=== PATIENT | male | born 1955 | race Hispanic/Latino ===

== ENCOUNTER 2021-12-22 09:48 | Emergency (ER) | payer OTHER, SELFPAY ==
[2021-12-22 11:51] LABS: #Eosinphils 0.2 thou/uL (0.0-0.7); #Monocytes 0.4 thou/uL (0.11-0.59); #Neutrophils 6.8 thou/uL (1.40-6.50); %Basophils 0.3 % (0.0-1.0); %Eosinophils 2.1 % (0.0-10.0); %Lymphocytes 28.5 % (21.0-51.0); %Monocytes 3.5 % (0.0-10.0); %Neutrophils 65.6 % (42.0-75.0); Hemoglobin 15.2 g/dL (14.0-18.0); Mean Corpuscular HGB CONC 33.3 g/dL (32.0-36.0); Mean Corpuscular Hemoglobin 31.3 pg (27.0-31.0); Mean Corpuscular Volume 93.9 fL (78.0-98.0); Mean Platelet Volume 8.9 fL (7.4-10.4); Platelet Count 237 thou/uL (130-400); RBC Distribution Width 11.9 % (11.5-14.5); Red Blood Cell (RBC) Count 4.85 mill/uL (4.70-6.10); White Blood Cell (WBC) Count 10.4 thou/uL (4.8-10.8)
[2021-12-22 12:10] LABS: ALT (SGPT) 9 U/L (8-55); AST (SGOT) 10 U/L (5-34); Alkaline Phosphatase 185 U/L (40-110); Anion Gap 15 mmol/L (10-20); BUN (Urea Nitrogen) 16 mg/dL (8.4-25.7); Bilirubin, Total 0.6 mg/dL (0.2-1.2); Calc. Creatinine Clearance 0 mL/min (70-130); Calcium 9.5 mg/dL (7.8-10.44); Carbon Dioxide 20 mmol/L (23-31); Chloride 107 mmol/L (98-107); Globulin 4.1 g/dL (2.4-3.5); Glucose 302 mg/dL (80-115); Potassium 3.5 mmol/L (3.5-5.1); Protein, Total 8.1 g/dL (5.8-8.1); Sodium 138 mmol/L (136-145)
== END 2021-12-22 12:45 | disposition home or self-care (01) ==
LOC: ERS 09:48
DX: I96 Gangrene, not elsewhere classified (principal); E11.9 Type 2 diabetes mellitus without complications; I25.10 Atherosclerotic heart disease of native coronary artery without angina pectoris; I25.2 Old myocardial infarction; E78.5 Hyperlipidemia, unspecified; I10 Essential (primary) hypertension; F17.210 Nicotine dependence, cigarettes, uncomplicated
CPT/HCPCS: 36415; 80053; 85025

== ENCOUNTER 2022-01-18 12:01 | Inpatient (IN) | payer OTHER, SELFPAY ==
[2022-01-18 12:53] LABS: #Basophils 0.1 thou/uL (0.0-0.2); #Eosinphils 0.2 thou/uL (0.0-0.7); #Lymphocytes 2.5 thou/uL (1.20-3.40); #Monocytes 0.5 thou/uL (0.11-0.59); #Neutrophils 7.2 thou/uL (1.40-6.50); %Basophils 0.6 % (0.0-1.0); %Eosinophils 1.6 % (0.0-10.0); %Lymphocytes 24.1 % (21.0-51.0); %Monocytes 4.4 % (0.0-10.0); %Neutrophils 69.2 % (42.0-75.0); Hemoglobin 12.4 g/dL (14.0-18.0); Mean Corpuscular HGB CONC 33.2 g/dL (32.0-36.0); Mean Corpuscular Hemoglobin 30.8 pg (27.0-31.0); Mean Corpuscular Volume 92.5 fL (78.0-98.0); Mean Platelet Volume 8.5 fL (7.4-10.4); Platelet Count 334 thou/uL (130-400); Red Blood Cell (RBC) Count 4.03 mill/uL (4.70-6.10); White Blood Cell (WBC) Count 10.4 thou/uL (4.8-10.8)
[2022-01-18] MEDS ORDERED: Cefepime 2 GM VIAL ONE (13:04)
[2022-01-18] MEDS ORDERED: Morphine 4 MG/ML VIAL ONE (13:04)
[2022-01-18] MEDS ORDERED: Vancomycin 1 GM/200 ML BAG ONE (13:07)
[2022-01-18 13:19] LABS: Anion Gap 16 mmol/L (10-20); BUN (Urea Nitrogen) 15 mg/dL (8.4-25.7); CRP (Inflammatory) 6.94 mg/dL (= or < 0.5); Calc. Creatinine Clearance 0 mL/min (70-130); Carbon Dioxide 22 mmol/L (23-31); Chloride 103 mmol/L (98-107); Potassium 3.2 mmol/L (3.5-5.1); Sodium 138 mmol/L (136-145)
[2022-01-18 13:20] LABS: ALT (SGPT) 7 U/L (8-55); AST (SGOT) 6 U/L (5-34); Albumin 3.3 g/dL (3.4-4.8); Alkaline Phosphatase 174 U/L (40-110); Bilirubin, Total 0.6 mg/dL (0.2-1.2); Calcium 9.1 mg/dL (7.8-10.44); Globulin 3.9 g/dL (2.4-3.5); Glucose 523 mg/dL (80-115); Protein, Total 7.2 g/dL (5.8-8.1)
[2022-01-18] MEDS ORDERED: Potassium Chloride 20 MEQ TAB ONE (13:39)
[2022-01-18] MEDS ORDERED: Insulin Regular 300 UNITS/3 ML VIAL ONE (13:39)
[2022-01-18] MEDS ORDERED: Calcium Carbonate 500 MG ChewTAB PO PRN (14:27)
[2022-01-18] MEDS ORDERED: Ondansetron PF 4 MG/2 ML Vial IVP PRN (14:27)
[2022-01-18] MEDS ORDERED: Acetaminophen 325 MG TAB PO PRN (14:27)
[2022-01-18] MEDS ORDERED: Dextrose 50% Abboject 50 ML SYRINGE SLOW IVP PRN (14:29)
[2022-01-18] MEDS ORDERED: Dextrose 5% in Water 1,000 ML IV PRN (14:29)
[2022-01-18] MEDS ORDERED: NS 0.9% w/ 20 MEQ KCL 1,000 ML/1,000 ML BAG IV SCH (14:45)
[2022-01-18] MEDS ORDERED: Potassium Chloride 20 MEQ TAB PO SCH (14:45)
[2022-01-18 15:47] LABS: Lactic Acid 1.7 mmol/L (0.5-2.2)
[2022-01-18 16:09] LABS: Bacteria/HPF None Seen HPF (None Seen); Bilirubin Negative (Negative); Blood, Urine Negative (Negative); Clarity Clear (Clear); Glucose, Urine (Dipstick) Greater than 1000 mg/dL (Negative); Ketone, Urine Negative (Negative); Leukocyte Negative Leu/uL (Negative); Nitrite Negative (Negative); Protein, Urine (Dipstick) 50 mg/dL (Neg-Trace); RBC/HPF 0-3 HPF (0-3); Specific Gravity, Urine 1.036 (1.002-1.036); Squamous Epithelial 0-3 HPF (0-3); WBC/HPF 0-3 HPF (0-3)
[2022-01-18] MEDS: HYDROcodone/Acetaminophen 5/325 mg Tablet PO PRN ×2 (17:01→22:36)
[2022-01-18] MEDS ORDERED: Lisinopril/Hydrochlorothiazide 20/25 mg Tablet PO SCH (17:45)
[2022-01-18] MEDS: Morphine 2 MG/ML VIAL SLOW IVP PRN (20:35)
[2022-01-18] MEDS: Famotidine 20 MG TAB PO SCH (20:35)
[2022-01-18] MEDS ORDERED: Vancomycin 1 GM in Premix Bag 1 BAG IVPB SCH (21:00)
[2022-01-18] MEDS ORDERED: Insulin Glargine 30 UNITS/0.3 ML VIAL SC SCH (21:00)
[2022-01-18] MEDS: hydrALAZINE 20 MG/ML VIAL SLOW IVP PRN (21:05)
[2022-01-18 23:21] LABS: SARS-CoV-2 PCR by NAA Not Detected (NotDetected)
[2022-01-19] MEDS: Cefepime 1 GM in Sodium Chloride 0.9% 100 ML IVPB SCH ×2 (00:34→13:37)
[2022-01-19] MEDS: Morphine 2 MG/ML VIAL SLOW IVP PRN ×5 (00:35→19:23)
[2022-01-19] MEDS: HYDROcodone/Acetaminophen 5/325 mg Tablet PO PRN ×5 (02:37→21:51)
[2022-01-19 06:13] LABS: #Basophils 0.1 thou/uL (0.0-0.2); #Eosinphils 0.3 thou/uL (0.0-0.7); #Lymphocytes 3.5 thou/uL (1.20-3.40); #Monocytes 0.5 thou/uL (0.11-0.59); #Neutrophils 5.8 thou/uL (1.40-6.50); %Basophils 0.6 % (0.0-1.0); %Eosinophils 2.8 % (0.0-10.0); %Lymphocytes 34.2 % (21.0-51.0); %Monocytes 5.3 % (0.0-10.0); Hemoglobin 10.9 g/dL (14.0-18.0); Mean Corpuscular HGB CONC 33.5 g/dL (32.0-36.0); Mean Corpuscular Hemoglobin 31.1 pg (27.0-31.0); Mean Corpuscular Volume 92.9 fL (78.0-98.0); Mean Platelet Volume 8.6 fL (7.4-10.4); Platelet Count 312 thou/uL (130-400); RBC Distribution Width 11.9 % (11.5-14.5); Red Blood Cell (RBC) Count 3.52 mill/uL (4.70-6.10); White Blood Cell (WBC) Count 10.1 thou/uL (4.8-10.8)
[2022-01-19 06:21] LABS: Hemoglobin A1c 10.1 % (4.0-6.0)
[2022-01-19 06:23] LABS: Prothrombin Time 13.5 sec (12.0-14.7)
[2022-01-19 06:36] LABS: ALT (SGPT) Less than 7 U/L (8-55); AST (SGOT) 7 U/L (5-34); Albumin 2.9 g/dL (3.4-4.8); Alkaline Phosphatase 131 U/L (40-110); Anion Gap 11 mmol/L (10-20); BUN (Urea Nitrogen) 10 mg/dL (8.4-25.7); Bilirubin, Total 0.5 mg/dL (0.2-1.2); Calc. Creatinine Clearance 101 mL/min (70-130); Calcium 8.3 mg/dL (7.8-10.44); Carbon Dioxide 23 mmol/L (23-31); Chloride 107 mmol/L (98-107); Globulin 3.4 g/dL (2.4-3.5); Glucose 217 mg/dL (80-115); Magnesium 1.8 mg/dL (1.6-2.6); Potassium 3.3 mmol/L (3.5-5.1); Protein, Total 6.3 g/dL (5.8-8.1); Sodium 138 mmol/L (136-145)
[2022-01-19] MEDS: HumaLOG 300 UNITS/3 ML VIAL SC PRN ×3 (06:53→17:08)
[2022-01-19] MEDS ORDERED: Sodium Chloride 0.65% Nasal 44 ML BOT EA NARE PRN (08:57)
[2022-01-19] MEDS ORDERED: Loratadine 10 MG TAB PO PRN (08:57)
[2022-01-19] MEDS ORDERED: Labetalol HCl 100 MG/20 ML VIAL SLOW IVP PRN (08:57)
[2022-01-19] MEDS ORDERED: Enoxaparin Sodium 40 MG/0.4 ML SYRINGE SC SCH (09:00)
[2022-01-19] MEDS ORDERED: Insulin Glargine 30 UNITS/0.3 ML VIAL SC SCH (09:00)
[2022-01-19] MEDS: Famotidine 20 MG TAB PO SCH ×2 (09:21→20:03)
[2022-01-19] MEDS: Lisinopril/Hydrochlorothiazide 20/25 mg Tablet PO SCH (09:22)
[2022-01-19] MEDS: Aspirin 81 mg Enteric Coated Tablet PO SCH (09:22)
[2022-01-19] MEDS: Amlodipine 5 MG TAB PO SCH (09:22)
[2022-01-19] MEDS: hydrALAZINE 25 MG TAB PO SCH ×4 (09:22→20:03)
[2022-01-19] MEDS ORDERED: VANCOMYCIN 1.25 GM/250 ML BAG 1.25 GM in Premix Bag 1 BAG IVPB SCH (13:00)
[2022-01-19] MEDS: Vancomycin HCl 1.25 GM in Sodium Chloride 0.9% 250 ML 250 ML IVPB SCH ×2 (13:37→17:21)
[2022-01-19] MEDS ORDERED: Magnesium 2 GM/50 ML(in water) 2 GM in Premix Bag 1 BAG IVPB SCH (14:00)
[2022-01-19] MEDS ORDERED: Electrolyte Replacement Protocol 1 EACH FS PRN (14:00)
[2022-01-19] MEDS: Senokot S 8.6-50 MG TAB PO PRN (15:59)
[2022-01-19] MEDS ORDERED: Vancomycin HCl 1.25 GM in Sodium Chloride 0.9% 250 ML 250 ML IVPB SCH (18:00)
[2022-01-19] MEDS ORDERED: Potassium Chloride 20 MEQ TAB PO SCH (19:30)
[2022-01-19] MEDS: Insulin Glargine 30 UNITS/0.3 ML VIAL SC SCH (19:56)
[2022-01-19] MEDS: Atorvastatin Calcium 40 MG TAB PO SCH (20:03)
[2022-01-20] MEDS: Morphine 2 MG/ML VIAL SLOW IVP PRN ×4 (00:06→22:28)
[2022-01-20] MEDS: Cefepime 1 GM in Sodium Chloride 0.9% 100 ML IVPB SCH (00:06)
[2022-01-20 04:41] LABS: #Basophils 0.1 thou/uL (0.0-0.2); #Eosinphils 0.3 thou/uL (0.0-0.7); #Monocytes 0.6 thou/uL (0.11-0.59); #Neutrophils 7.2 thou/uL (1.40-6.50); %Basophils 0.5 % (0.0-1.0); %Eosinophils 2.3 % (0.0-10.0); %Lymphocytes 27.2 % (21.0-51.0); %Monocytes 5.6 % (0.0-10.0); %Neutrophils 64.4 % (42.0-75.0); Hemoglobin 11.7 g/dL (14.0-18.0); Mean Corpuscular HGB CONC 33.7 g/dL (32.0-36.0); Mean Corpuscular Hemoglobin 31.5 pg (27.0-31.0); Mean Corpuscular Volume 93.4 fL (78.0-98.0); Mean Platelet Volume 8.1 fL (7.4-10.4); Platelet Count 332 thou/uL (130-400); Red Blood Cell (RBC) Count 3.73 mill/uL (4.70-6.10); White Blood Cell (WBC) Count 11.1 thou/uL (4.8-10.8)
[2022-01-20 05:00] LABS: Anion Gap 13 mmol/L (10-20); BUN (Urea Nitrogen) 7 mg/dL (8.4-25.7); Calc. Creatinine Clearance 93 mL/min (70-130); Calcium 9.3 mg/dL (7.8-10.44); Carbon Dioxide 26 mmol/L (23-31); Chloride 102 mmol/L (98-107); Glucose 112 mg/dL (80-115); Potassium 3.4 mmol/L (3.5-5.1); Sodium 138 mmol/L (136-145)
[2022-01-20] MEDS ORDERED: Potassium Chloride 20 MEQ TAB PO SCH (05:15)
[2022-01-20] MEDS: Potassium Chloride 20 MEQ in Premix Bag 1 BAG IVPB SCH ×2 (06:37→15:39)
[2022-01-20] MEDS: Famotidine 20 MG TAB PO SCH ×2 (08:09→20:41)
[2022-01-20] MEDS: Polyethylene Glycol 3350 17 GM Packet PO SCH (08:09)
[2022-01-20] MEDS: Aspirin 81 mg Enteric Coated Tablet PO SCH (08:09)
[2022-01-20] MEDS: Insulin Glargine 30 UNITS/0.3 ML VIAL SC SCH (08:09)
[2022-01-20] MEDS: hydrALAZINE 25 MG TAB PO SCH ×4 (08:58→20:41)
[2022-01-20] MEDS: Amlodipine 5 MG TAB PO SCH (08:59)
[2022-01-20] MEDS: Lisinopril/Hydrochlorothiazide 20/25 mg Tablet PO SCH (08:59)
[2022-01-20] MEDS: HYDROcodone/Acetaminophen 5/325 mg Tablet PO PRN ×2 (12:09→20:39)
[2022-01-20] MEDS ORDERED: Fentanyl 100 MCG/2 ML VIAL ONE (13:52)
[2022-01-20] MEDS ORDERED: Midazolam HCl 2 mg/2 ml Vial ONE (13:52)
[2022-01-20] MEDS: Cefepime 2 GM in Sodium Chloride 0.9% 100 ML IVPB SCH (14:09)
[2022-01-20] MEDS ORDERED: fentaNYL Citrate/PF 100 MCG/2 ML SYRINGE ONE (14:31)
[2022-01-20] MEDS ORDERED: PHENYLEPHRINE-NS 100 MCG/ML 10 ML SYRINGE ONE (15:00)
[2022-01-20] MEDS ORDERED: Ropivacaine 0.5% HCl/PF (150 MG/30 ML VIAL) ONE (15:00)
[2022-01-20] MEDS ORDERED: PROPOFOL 200 MG/20 ML VIAL ONE (15:00)
[2022-01-20] MEDS ORDERED: Lidocaine 1% PF 5 ML VIAL ONE (15:00)
[2022-01-20] MEDS ORDERED: ePHEDrine 50 MG/ML VIAL ONE (15:00)
[2022-01-20] MEDS: VANCOMYCIN 1.25 GM/250 ML BAG 1.25 GM in Premix Bag 1 BAG IVPB SCH (18:12)
[2022-01-20] MEDS: Atorvastatin Calcium 40 MG TAB PO SCH (20:41)
[2022-01-21] MEDS: HYDROcodone/Acetaminophen 5/325 mg Tablet PO PRN ×5 (01:30→19:10)
[2022-01-21] MEDS: Cefepime 2 GM in Sodium Chloride 0.9% 100 ML IVPB SCH (01:33)
[2022-01-21] MEDS: Morphine 2 MG/ML VIAL SLOW IVP PRN ×6 (03:42→22:31)
[2022-01-21 06:01] LABS: Anion Gap 13 mmol/L (10-20); BUN (Urea Nitrogen) 12 mg/dL (8.4-25.7); Calc. Creatinine Clearance 86 mL/min (70-130); Calcium 8.8 mg/dL (7.8-10.44); Carbon Dioxide 25 mmol/L (23-31); Chloride 101 mmol/L (98-107); Glucose 255 mg/dL (80-115); Potassium 3.5 mmol/L (3.5-5.1); Sodium 135 mmol/L (136-145)
[2022-01-21] MEDS: VANCOMYCIN 1.25 GM/250 ML BAG 1.25 GM in Premix Bag 1 BAG IVPB SCH (06:05)
[2022-01-21] MEDS: HumaLOG 300 UNITS/3 ML VIAL SC PRN ×2 (06:06→10:53)
[2022-01-21] MEDS ORDERED: Potassium Chloride 20 MEQ TAB PO SCH (06:15)
[2022-01-21] MEDS: Polyethylene Glycol 3350 17 GM Packet PO SCH (08:46)
[2022-01-21] MEDS: hydrALAZINE 25 MG TAB PO SCH ×4 (08:46→20:11)
[2022-01-21] MEDS: Enoxaparin Sodium 40 MG/0.4 ML SYRINGE SC SCH (08:46)
[2022-01-21] MEDS: Aspirin 81 mg Enteric Coated Tablet PO SCH (08:46)
[2022-01-21] MEDS: Lisinopril/Hydrochlorothiazide 20/25 mg Tablet PO SCH (08:46)
[2022-01-21] MEDS: Famotidine 20 MG TAB PO SCH ×2 (08:47→20:11)
[2022-01-21] MEDS: Amlodipine 5 MG TAB PO SCH (08:47)
[2022-01-21] MEDS: Insulin Glargine 30 UNITS/0.3 ML VIAL SC SCH ×2 (08:47→20:13)
[2022-01-21] MEDS ORDERED: Insulin Glargine 30 UNITS/0.3 ML VIAL SC SCH (09:00)
[2022-01-21] MEDS: hydrALAZINE 20 MG/ML VIAL SLOW IVP PRN (18:31)
[2022-01-21] MEDS: Atorvastatin Calcium 40 MG TAB PO SCH (20:12)
[2022-01-22] MEDS: HYDROcodone/Acetaminophen 5/325 mg Tablet PO PRN ×6 (01:16→21:10)
[2022-01-22] MEDS: Senokot S 8.6-50 MG TAB PO PRN (01:16)
[2022-01-22] MEDS: Morphine 2 MG/ML VIAL SLOW IVP PRN (04:16)
[2022-01-22] MEDS: HumaLOG 300 UNITS/3 ML VIAL SC PRN ×2 (05:12→11:38)
[2022-01-22] MEDS: Aspirin 81 mg Enteric Coated Tablet PO SCH (08:36)
[2022-01-22] MEDS: Amlodipine 5 MG TAB PO SCH (08:36)
[2022-01-22] MEDS: Lisinopril/Hydrochlorothiazide 20/25 mg Tablet PO SCH (08:36)
[2022-01-22] MEDS: hydrALAZINE 25 MG TAB PO SCH ×4 (08:36→21:09)
[2022-01-22] MEDS: Famotidine 20 MG TAB PO SCH ×2 (08:36→21:10)
[2022-01-22] MEDS: Enoxaparin Sodium 40 MG/0.4 ML SYRINGE SC SCH (08:37)
[2022-01-22] MEDS: Polyethylene Glycol 3350 17 GM Packet PO SCH (08:37)
[2022-01-22] MEDS: Insulin Glargine 30 UNITS/0.3 ML VIAL SC SCH (08:45)
[2022-01-22] MEDS ORDERED: Morphine 4 MG/ML VIAL SLOW IVP PRN (09:16)
[2022-01-22] MEDS: Gabapentin 100 MG CAP PO SCH ×2 (17:03→21:10)
[2022-01-22] MEDS ORDERED: Insulin Glargine 30 UNITS/0.3 ML VIAL SC SCH (21:00)
[2022-01-22] MEDS: Atorvastatin Calcium 40 MG TAB PO SCH (21:09)
[2022-01-22] MEDS ORDERED: Gabapentin 100 MG CAP PO SCH (23:59)
[2022-01-23] MEDS: HYDROcodone/Acetaminophen 5/325 mg Tablet PO PRN ×4 (02:47→17:21)
[2022-01-23] MEDS: HumaLOG 300 UNITS/3 ML VIAL SC PRN ×2 (06:01→11:58)
[2022-01-23] MEDS ORDERED: Morphine 4 MG/ML VIAL SLOW IVP PRN (07:45)
[2022-01-23] MEDS ORDERED: Gabapentin 100 MG CAP PO SCH (07:46)
[2022-01-23] MEDS: Aspirin 81 mg Enteric Coated Tablet PO SCH (09:27)
[2022-01-23] MEDS: Polyethylene Glycol 3350 17 GM Packet PO SCH (09:27)
[2022-01-23] MEDS: hydrALAZINE 25 MG TAB PO SCH ×4 (09:27→21:32)
[2022-01-23] MEDS: Amlodipine 5 MG TAB PO SCH (09:27)
[2022-01-23] MEDS: Enoxaparin Sodium 40 MG/0.4 ML SYRINGE SC SCH (09:27)
[2022-01-23] MEDS: Famotidine 20 MG TAB PO SCH ×2 (09:28→21:13)
[2022-01-23] MEDS: Lisinopril/Hydrochlorothiazide 20/25 mg Tablet PO SCH (09:28)
[2022-01-23] MEDS: Gabapentin 300 MG CAP PO SCH ×4 (09:28→21:32)
[2022-01-23] MEDS: Insulin Glargine 30 UNITS/0.3 ML VIAL SC SCH ×2 (09:29→21:14)
[2022-01-23] MEDS: Atorvastatin Calcium 40 MG TAB PO SCH (21:14)
[2022-01-23] MEDS ORDERED: Naloxone HCl 0.4 mg/ml Vial ONE (21:39)
[2022-01-23] MEDS ORDERED: Naloxone HCl 0.4 mg/ml Vial IV SCH (21:45)
[2022-01-23 22:01] LABS: #Basophils 0.1 thou/uL (0.0-0.2); #Eosinphils 0.2 thou/uL (0.0-0.7); #Monocytes 0.9 thou/uL (0.11-0.59); #Neutrophils 10.1 thou/uL (1.40-6.50); %Basophils 0.5 % (0.0-1.0); %Eosinophils 1.2 % (0.0-10.0); %Lymphocytes 20.9 % (21.0-51.0); %Monocytes 6.1 % (0.0-10.0); %Neutrophils 71.4 % (42.0-75.0); Hemoglobin 12.9 g/dL (14.0-18.0); Mean Corpuscular HGB CONC 31.6 g/dL (32.0-36.0); Mean Corpuscular Hemoglobin 29.9 pg (27.0-31.0); Mean Corpuscular Volume 94.5 fL (78.0-98.0); Platelet Count 379 thou/uL (130-400); RBC Distribution Width 12.1 % (11.5-14.5); Red Blood Cell (RBC) Count 4.31 mill/uL (4.70-6.10); White Blood Cell (WBC) Count 14.2 thou/uL (4.8-10.8)
[2022-01-24] MEDS: HYDROcodone/Acetaminophen 5/325 mg Tablet PO PRN ×4 (02:29→21:56)
[2022-01-24] MEDS: Enoxaparin Sodium 40 MG/0.4 ML SYRINGE SC SCH (09:52)
[2022-01-24] MEDS: Lisinopril/Hydrochlorothiazide 20/25 mg Tablet PO SCH (09:52)
[2022-01-24] MEDS: Aspirin 81 mg Enteric Coated Tablet PO SCH (09:52)
[2022-01-24] MEDS: Amlodipine 5 MG TAB PO SCH (09:52)
[2022-01-24] MEDS: hydrALAZINE 25 MG TAB PO SCH ×4 (09:52→20:40)
[2022-01-24] MEDS: Famotidine 20 MG TAB PO SCH ×2 (09:52→20:39)
[2022-01-24] MEDS: Gabapentin 100 MG CAP PO SCH ×3 (09:52→20:39)
[2022-01-24] MEDS: Insulin Glargine 30 UNITS/0.3 ML VIAL SC SCH ×2 (09:53→20:42)
[2022-01-24] MEDS: Polyethylene Glycol 3350 17 GM Packet PO SCH (10:15)
[2022-01-24 10:32] LABS: Platelet Count 345 thou/uL (130-400)
[2022-01-24 10:43] LABS: Anion Gap 15 mmol/L (10-20); BUN (Urea Nitrogen) 20 mg/dL (8.4-25.7); Calc. Creatinine Clearance 93 mL/min (70-130); Calcium 9.2 mg/dL (7.8-10.44); Carbon Dioxide 24 mmol/L (23-31); Chloride 97 mmol/L (98-107); Glucose 123 mg/dL (80-115); Potassium 4.1 mmol/L (3.5-5.1); Sodium 132 mmol/L (136-145)
[2022-01-24] MEDS: Atorvastatin Calcium 40 MG TAB PO SCH (20:39)
[2022-01-25] MEDS: HYDROcodone/Acetaminophen 5/325 mg Tablet PO PRN ×3 (04:38→14:00)
[2022-01-25] MEDS: HumaLOG 300 UNITS/3 ML VIAL SC PRN ×3 (06:22→17:13)
[2022-01-25] MEDS: Enoxaparin Sodium 40 MG/0.4 ML SYRINGE SC SCH (09:04)
[2022-01-25] MEDS: Famotidine 20 MG TAB PO SCH ×2 (09:05→20:43)
[2022-01-25] MEDS: Aspirin 81 mg Enteric Coated Tablet PO SCH (09:05)
[2022-01-25] MEDS: Insulin Glargine 30 UNITS/0.3 ML VIAL SC SCH ×2 (09:05→21:29)
[2022-01-25] MEDS: Polyethylene Glycol 3350 17 GM Packet PO SCH (09:05)
[2022-01-25] MEDS: Gabapentin 100 MG CAP PO SCH ×3 (09:08→20:44)
[2022-01-25] MEDS: hydrALAZINE 25 MG TAB PO SCH ×4 (09:13→20:43)
[2022-01-25] MEDS: Amlodipine 5 MG TAB PO SCH (09:13)
[2022-01-25] MEDS: Lisinopril/Hydrochlorothiazide 20/25 mg Tablet PO SCH (09:13)
[2022-01-25 16:23] LABS: SARS-CoV-2 PCR by NAA Not Detected (NotDetected)
[2022-01-25] MEDS: Atorvastatin Calcium 40 MG TAB PO SCH (20:44)
[2022-01-26] MEDS: HYDROcodone/Acetaminophen 5/325 mg Tablet PO PRN ×2 (02:42→16:02)
[2022-01-26] MEDS: HumaLOG 300 UNITS/3 ML VIAL SC PRN ×3 (05:43→20:17)
[2022-01-26] MEDS: Aspirin 81 mg Enteric Coated Tablet PO SCH (09:57)
[2022-01-26] MEDS: Enoxaparin Sodium 40 MG/0.4 ML SYRINGE SC SCH (09:57)
[2022-01-26] MEDS: Amlodipine 5 MG TAB PO SCH (09:57)
[2022-01-26] MEDS: hydrALAZINE 25 MG TAB PO SCH ×4 (09:57→20:18)
[2022-01-26] MEDS: Lisinopril/Hydrochlorothiazide 20/25 mg Tablet PO SCH (09:57)
[2022-01-26] MEDS: Famotidine 20 MG TAB PO SCH ×2 (09:57→20:16)
[2022-01-26] MEDS: Insulin Glargine 30 UNITS/0.3 ML VIAL SC SCH ×2 (09:58→20:17)
[2022-01-26] MEDS: Polyethylene Glycol 3350 17 GM Packet PO SCH (09:59)
[2022-01-26] MEDS: Gabapentin 100 MG CAP PO SCH ×2 (10:18→20:15)
[2022-01-26] MEDS: Ketorolac Tromethamine 30 MG/ML VIAL IVP PRN (12:55)
[2022-01-26] MEDS: Senokot S 8.6-50 MG TAB PO PRN (20:14)
[2022-01-26] MEDS: Atorvastatin Calcium 40 MG TAB PO SCH (20:15)
[2022-01-27] MEDS: Ketorolac Tromethamine 30 MG/ML VIAL IVP PRN ×3 (03:28→18:22)
[2022-01-27 09:59] LABS: Hemoglobin 12.1 g/dL (14.0-18.0); Platelet Count 451 thou/uL (130-400)
[2022-01-27] MEDS: Enoxaparin Sodium 40 MG/0.4 ML SYRINGE SC SCH (10:03)
[2022-01-27] MEDS: Aspirin 81 mg Enteric Coated Tablet PO SCH (10:03)
[2022-01-27] MEDS: Polyethylene Glycol 3350 17 GM Packet PO SCH (10:03)
[2022-01-27] MEDS: Amlodipine 5 MG TAB PO SCH (10:04)
[2022-01-27] MEDS: Senokot S 8.6-50 MG TAB PO PRN ×2 (10:04→21:47)
[2022-01-27] MEDS: Famotidine 20 MG TAB PO SCH ×2 (10:04→21:48)
[2022-01-27] MEDS: hydrALAZINE 25 MG TAB PO SCH ×2 (10:05→12:39)
[2022-01-27] MEDS: Insulin Glargine 30 UNITS/0.3 ML VIAL SC SCH ×2 (10:05→21:49)
[2022-01-27] MEDS: Gabapentin 100 MG CAP PO SCH (10:05)
[2022-01-27] MEDS: Lisinopril/Hydrochlorothiazide 20/25 mg Tablet PO SCH (10:06)
[2022-01-27 10:21] LABS: Anion Gap 14 mmol/L (10-20); BUN (Urea Nitrogen) 29 mg/dL (8.4-25.7); Calc. Creatinine Clearance 78 mL/min (70-130); Calcium 9.8 mg/dL (7.8-10.44); Carbon Dioxide 24 mmol/L (23-31); Chloride 101 mmol/L (98-107); Glucose 186 mg/dL (80-115); Potassium 4.3 mmol/L (3.5-5.1); Sodium 135 mmol/L (136-145)
[2022-01-27] MEDS: HumaLOG 300 UNITS/3 ML VIAL SC PRN ×3 (12:40→21:50)
[2022-01-27] MEDS: Atorvastatin Calcium 40 MG TAB PO SCH (21:47)
[2022-01-27] MEDS: HYDROcodone/Acetaminophen 5/325 mg Tablet PO PRN (21:51)
[2022-01-28] MEDS: Ketorolac Tromethamine 30 MG/ML VIAL IVP PRN (01:59)
[2022-01-28] MEDS: HYDROcodone/Acetaminophen 5/325 mg Tablet PO PRN ×2 (06:26→12:15)
[2022-01-28] MEDS: HumaLOG 300 UNITS/3 ML VIAL SC PRN ×2 (06:27→12:15)
[2022-01-28] MEDS: Aspirin 81 mg Enteric Coated Tablet PO SCH (09:00)
[2022-01-28] MEDS: Gabapentin 100 MG CAP PO SCH (09:00)
[2022-01-28] MEDS: Enoxaparin Sodium 40 MG/0.4 ML SYRINGE SC SCH (09:00)
[2022-01-28] MEDS: Polyethylene Glycol 3350 17 GM Packet PO SCH (09:00)
[2022-01-28] MEDS: Famotidine 20 MG TAB PO SCH ×2 (09:01→22:05)
[2022-01-28] MEDS: Insulin Glargine 30 UNITS/0.3 ML VIAL SC SCH ×2 (09:20→22:05)
[2022-01-28 09:25] VITALS: BMI 24.7
[2022-01-28] MEDS: Atorvastatin Calcium 40 MG TAB PO SCH (22:05)
[2022-01-28] MEDS: Senokot S 8.6-50 MG TAB PO PRN (22:07)
[2022-01-29] MEDS: HYDROcodone/Acetaminophen 5/325 mg Tablet PO PRN ×2 (03:06→19:38)
[2022-01-29] MEDS: Amlodipine 5 MG TAB PO SCH (11:50)
[2022-01-29] MEDS: Famotidine 20 MG TAB PO SCH ×2 (11:50→20:57)
[2022-01-29] MEDS: Gabapentin 100 MG CAP PO SCH (11:50)
[2022-01-29] MEDS: Aspirin 81 mg Enteric Coated Tablet PO SCH (11:50)
[2022-01-29] MEDS: Ketorolac Tromethamine 30 MG/ML VIAL IVP PRN ×2 (11:50→19:37)
[2022-01-29] MEDS: Enoxaparin Sodium 40 MG/0.4 ML SYRINGE SC SCH (11:50)
[2022-01-29] MEDS: Polyethylene Glycol 3350 17 GM Packet PO SCH (11:58)
[2022-01-29] MEDS: Insulin Glargine 30 UNITS/0.3 ML VIAL SC SCH ×2 (11:58→21:02)
[2022-01-29] MEDS: Atorvastatin Calcium 40 MG TAB PO SCH (20:57)
[2022-01-30] MEDS: HYDROcodone/Acetaminophen 5/325 mg Tablet PO PRN ×4 (00:38→23:38)
[2022-01-30] MEDS: Ketorolac Tromethamine 30 MG/ML VIAL IVP PRN ×3 (03:31→19:25)
[2022-01-30] MEDS: Enoxaparin Sodium 40 MG/0.4 ML SYRINGE SC SCH (09:38)
[2022-01-30] MEDS: Aspirin 81 mg Enteric Coated Tablet PO SCH (09:38)
[2022-01-30] MEDS: Gabapentin 100 MG CAP PO SCH (09:38)
[2022-01-30] MEDS: Famotidine 20 MG TAB PO SCH ×2 (09:38→19:26)
[2022-01-30] MEDS: Amlodipine 5 MG TAB PO SCH (09:38)
[2022-01-30] MEDS: Polyethylene Glycol 3350 17 GM Packet PO SCH (09:39)
[2022-01-30] MEDS: Lisinopril/Hydrochlorothiazide 20/25 mg Tablet PO SCH (09:41)
[2022-01-30] MEDS: Insulin Glargine 30 UNITS/0.3 ML VIAL SC SCH ×2 (09:42→20:16)
[2022-01-30 10:00] LABS: Platelet Count 490 thou/uL (130-400)
[2022-01-30 10:20] LABS: Chloride 104 mmol/L (98-107); Potassium 4.3 mmol/L (3.5-5.1); Sodium 135 mmol/L (136-145)
[2022-01-30 10:21] LABS: Calcium 8.9 mg/dL (7.8-10.44); Glucose 143 mg/dL (80-115)
[2022-01-30 10:23] LABS: Anion Gap 13 mmol/L (10-20); Carbon Dioxide 22 mmol/L (23-31)
[2022-01-30 10:25] LABS: Calc. Creatinine Clearance 87 mL/min (70-130)
[2022-01-30 10:26] LABS: BUN (Urea Nitrogen) 27 mg/dL (8.4-25.7)
[2022-01-30] MEDS: Atorvastatin Calcium 40 MG TAB PO SCH (19:26)
[2022-01-31] MEDS: Polyethylene Glycol 3350 17 GM Packet PO SCH (09:43)
[2022-01-31] MEDS: Lisinopril/Hydrochlorothiazide 20/25 mg Tablet PO SCH (09:43)
[2022-01-31] MEDS: Aspirin 81 mg Enteric Coated Tablet PO SCH (09:44)
[2022-01-31] MEDS: Amlodipine 5 MG TAB PO SCH (09:44)
[2022-01-31] MEDS: Enoxaparin Sodium 40 MG/0.4 ML SYRINGE SC SCH (09:44)
[2022-01-31] MEDS: Insulin Glargine 30 UNITS/0.3 ML VIAL SC SCH (09:44)
[2022-01-31] MEDS: Gabapentin 100 MG CAP PO SCH (09:44)
[2022-01-31] MEDS: Famotidine 20 MG TAB PO SCH (09:44)
[2022-01-31 16:02] VITALS: BP 115/65; TEMP 97.8
== END 2022-01-31 18:45 | disposition home or self-care (01) | DRG 239 ==
LOC: ERS 12:01 → MSONC 14:01 → IMCU/EMU 01-23 21:53 → 2NO 01-24 21:39
PROVIDERS: ADMIT Family Medicine; ATTEND Family Medicine
PROC: 0Y6J0Z1 Detachment at Left Lower Leg, High, Open Approach (ICD-10-PCS; principal; 2022-01-20)
DX: E11.52 Type 2 diabetes mellitus with diabetic peripheral angiopathy with gangrene (principal); G92.8 Other toxic encephalopathy; I96 Gangrene, not elsewhere classified; E11.621 Type 2 diabetes mellitus with foot ulcer; E11.65 Type 2 diabetes mellitus with hyperglycemia; E78.5 Hyperlipidemia, unspecified; I10 Essential (primary) hypertension; Z20.822 Contact with and (suspected) exposure to COVID-19; F17.210 Nicotine dependence, cigarettes, uncomplicated; L97.529 Non-pressure chronic ulcer of other part of left foot with unspecified severity; E87.6 Hypokalemia; I25.10 Atherosclerotic heart disease of native coronary artery without angina pectoris; Z79.84 Long term (current) use of oral hypoglycemic drugs; Z79.82 Long term (current) use of aspirin; Z79.899 Other long term (current) drug therapy; Z95.5 Presence of coronary angioplasty implant and graft; Z98.890 Other specified postprocedural states; Z82.49 Family history of ischemic heart disease and other diseases of the circulatory system
CPT/HCPCS: 36415; 36416; 70450; 71045; 80048; 80053; 81003; 81015; 82550; 83036; 83605; 83690; 83735; 83880; 84484; 85014; 85018; 85025; 85049; 85610; 85652; 86140; 87040; 88307; 88311; 93005; 96365; 96367; 96375; J0360; J0692; J1650; J1815; J1885; J2250; J2270; J2310; J2704; J2795; J3010; J3370; J3475; J3480; J3490; J7050; U0003; U0005

== ENCOUNTER 2022-12-25 20:39 | Inpatient (IN) | payer MEDICARE, OTHER ==
[2022-12-26 00:13] LABS: #Eosinphils 0.3 thou/uL (0.0-0.7); #Lymphocytes 2.8 thou/uL (1.20-3.40); #Monocytes 0.5 thou/uL (0.11-0.59); #Neutrophils 4.6 thou/uL (1.40-6.50); %Basophils 0.6 % (0.0-1.0); %Eosinophils 3.3 % (0.0-10.0); %Lymphocytes 34.7 % (21.0-51.0); %Monocytes 5.5 % (0.0-10.0); %Neutrophils 55.9 % (42.0-75.0); Mean Corpuscular HGB CONC 34.1 g/dL (32.0-36.0); Mean Corpuscular Volume 93.9 fl (78.0-98.0); Mean Platelet Volume 11.9 fL (7.4-10.4); Platelet Count 138 10x3/uL (130-400); RBC Distribution Width 13.8 % (11.5-14.5); Red Blood Cell (RBC) Count 4.07 mill/uL (4.70-6.10); White Blood Cell (WBC) Count 8.2 10x3/uL (4.8-10.8)
[2022-12-26 00:35] LABS: ALT (SGPT) 8 U/L (8-55); AST (SGOT) 20 U/L (5-34); Albumin 3.6 g/dL (3.4-4.8); Alkaline Phosphatase 151 U/L (40-110); Anion Gap 17 mmol/L (10-20); BUN (Urea Nitrogen) 12 mg/dL (8.4-25.7); Calc. Creatinine Clearance 0 mL/min (70-130); Calcium 9.5 mg/dL (7.8-10.44); Carbon Dioxide 20 mmol/L (23-31); Chloride 110 mmol/L (98-107); Estimated GFR 77; Globulin 3.7 g/dL (2.4-3.5); Glucose 78 mg/dL (80-115); Potassium 3.5 mmol/L (3.5-5.1); Protein, Total 7.3 g/dL (5.8-8.1); Sodium 143 mmol/L (136-145)
[2022-12-26] MEDS ORDERED: Dextrose 50% Abboject 50 ML SYRINGE SLOW IVP PRN (00:44)
[2022-12-26] MEDS ORDERED: Ondansetron PF 4 MG/2 ML Vial IVP PRN (00:44)
[2022-12-26] MEDS ORDERED: Ondansetron ODT 4 MG TAB PO PRN (00:44)
[2022-12-26] MEDS ORDERED: Dextrose 5% in Water 1,000 ML IV PRN (00:44)
[2022-12-26] MEDS ORDERED: HumaLOG 300 UNITS/3 ML VIAL SC PRN ×2 (00:44)
[2022-12-26] MEDS ORDERED: Acetaminophen 650 MG Suppository PR PRN (00:44)
[2022-12-26] MEDS ORDERED: Labetalol HCl 100 MG/20 ML VIAL SLOW IVP PRN (00:49)
[2022-12-26] MEDS ORDERED: Electrolyte Replacement Protocol 1 EACH FS SCH (01:15)
[2022-12-26 01:38] LABS: INR-International Normal Ratio 1.3; PTT 40.2 sec (22.9-36.1); Prothrombin Time 17.1 sec (12.0-14.7)
[2022-12-26] MEDS ORDERED: hydrALAZINE 20 MG/ML VIAL SLOW IVP PRN ×2 (01:45→03:13)
[2022-12-26] MEDS ORDERED: Dextrose 5 %-0.45 % NaCl 1,000 ML IV SCH (02:00)
[2022-12-26 05:48] LABS: #Eosinphils 0.3 thou/uL (0.0-0.7); #Lymphocytes 2.9 thou/uL (1.20-3.40); #Monocytes 0.4 thou/uL (0.11-0.59); #Neutrophils 4.6 thou/uL (1.40-6.50); %Basophils 0.4 % (0.0-1.0); %Eosinophils 3.2 % (0.0-10.0); %Lymphocytes 35.4 % (21.0-51.0); %Monocytes 4.9 % (0.0-10.0); %Neutrophils 56.1 % (42.0-75.0); Hemoglobin 12.2 g/dL (14.0-18.0); Mean Corpuscular HGB CONC 33.2 g/dL (32.0-36.0); Mean Corpuscular Hemoglobin 30.9 pg (27.0-31.0); Mean Platelet Volume 11.8 fL (7.4-10.4); Platelet Count 134 10x3/uL (130-400); RBC Distribution Width 13.7 % (11.5-14.5); Red Blood Cell (RBC) Count 3.97 mill/uL (4.70-6.10); White Blood Cell (WBC) Count 8.1 10x3/uL (4.8-10.8)
[2022-12-26 06:00] LABS: ALT (SGPT) 8 U/L (8-55); AST (SGOT) 18 U/L (5-34); Albumin 3.6 g/dL (3.4-4.8); Alkaline Phosphatase 150 U/L (40-110); Anion Gap 15 mmol/L (10-20); BUN (Urea Nitrogen) 13 mg/dL (8.4-25.7); Bilirubin, Total 0.9 mg/dL (0.2-1.2); Calc. Creatinine Clearance 59 mL/min (70-130); Calcium 9.6 mg/dL (7.8-10.44); Carbon Dioxide 22 mmol/L (23-31); Chloride 110 mmol/L (98-107); Estimated GFR 81; Globulin 3.6 g/dL (2.4-3.5); Glucose 76 mg/dL (80-115); Magnesium 1.9 mg/dL (1.6-2.6); Potassium 3.6 mmol/L (3.5-5.1); Protein, Total 7.2 g/dL (5.8-8.1); Sodium 143 mmol/L (136-145)
[2022-12-26] MEDS ORDERED: Magnesium 2 GM/50 ML BAG (IN WATER) ONE (07:55)
[2022-12-26] MEDS ORDERED: Magnesium 2 GM/50 ML(in water) 2 GM in Premix Bag 1 BAG IVPB SCH (08:00)
[2022-12-26] MEDS ORDERED: Pantoprazole 40 MG VIAL IVP SCH (13:06)
[2022-12-26 13:44] LABS: #Basophils 0.1 thou/uL (0.0-0.2); #Eosinphils 0.3 thou/uL (0.0-0.7); #Lymphocytes 3.9 thou/uL (1.20-3.40); #Monocytes 0.4 thou/uL (0.11-0.59); #Neutrophils 3.6 thou/uL (1.40-6.50); %Basophils 0.7 % (0.0-1.0); %Lymphocytes 46.7 % (21.0-51.0); %Monocytes 5.2 % (0.0-10.0); %Neutrophils 43.4 % (42.0-75.0); Hemoglobin 12.7 g/dL (14.0-18.0); Mean Corpuscular HGB CONC 32.9 g/dL (32.0-36.0); Mean Corpuscular Hemoglobin 31.1 pg (27.0-31.0); Mean Corpuscular Volume 94.4 fl (78.0-98.0); Mean Platelet Volume 11.1 fL (7.4-10.4); Platelet Count 139 10x3/uL (130-400); RBC Distribution Width 13.6 % (11.5-14.5); Red Blood Cell (RBC) Count 4.08 mill/uL (4.70-6.10); White Blood Cell (WBC) Count 8.4 10x3/uL (4.8-10.8)
[2022-12-26] MEDS: Dextrose 5 %-0.45 % NaCl 1,000 ML IV SCH ×2 (13:50→23:45)
[2022-12-26] MEDS ORDERED: Pantoprazole 40 MG VIAL ONE (13:58)
[2022-12-26] MEDS: Pantoprazole 40 MG VIAL IVP SCH (20:35)
[2022-12-27 05:28] LABS: #Basophils 0.1 thou/uL (0.0-0.2); #Eosinphils 0.3 thou/uL (0.0-0.7); #Lymphocytes 3.1 thou/uL (1.20-3.40); #Monocytes 0.5 thou/uL (0.11-0.59); #Neutrophils 3.7 thou/uL (1.40-6.50); %Basophils 0.7 % (0.0-1.0); %Eosinophils 3.7 % (0.0-10.0); %Monocytes 5.9 % (0.0-10.0); %Neutrophils 48.7 % (42.0-75.0); Hemoglobin 12.9 g/dL (14.0-18.0); Mean Corpuscular HGB CONC 33.2 g/dL (32.0-36.0); Mean Corpuscular Volume 93.6 fl (78.0-98.0); Mean Platelet Volume 11.5 fL (7.4-10.4); Platelet Count 131 10x3/uL (130-400); RBC Distribution Width 13.7 % (11.5-14.5); Red Blood Cell (RBC) Count 4.16 mill/uL (4.70-6.10); White Blood Cell (WBC) Count 7.5 10x3/uL (4.8-10.8)
[2022-12-27 05:49] LABS: Troponin I Less than 0.010 ng/mL (< 0.028)
[2022-12-27 05:52] LABS: ALT (SGPT) 10 U/L (8-55); AST (SGOT) 19 U/L (5-34); Albumin 3.6 g/dL (3.4-4.8); Alkaline Phosphatase 149 U/L (40-110); Anion Gap 14 mmol/L (10-20); BUN (Urea Nitrogen) 11 mg/dL (8.4-25.7); Calc. Creatinine Clearance 61 mL/min (70-130); Calcium 9.4 mg/dL (7.8-10.44); Carbon Dioxide 20 mmol/L (23-31); Chloride 110 mmol/L (98-107); Estimated GFR 88; Globulin 3.7 g/dL (2.4-3.5); Glucose 125 mg/dL (80-115); Magnesium 2.1 mg/dL (1.6-2.6); Potassium 3.5 mmol/L (3.5-5.1); Protein, Total 7.3 g/dL (5.8-8.1); Sodium 140 mmol/L (136-145)
[2022-12-27] MEDS ORDERED: Potassium Chloride 20 MEQ TAB PO SCH (08:00)
[2022-12-27] MEDS ORDERED: Spironolactone 25 MG TAB PO SCH (08:45)
[2022-12-27] MEDS: Losartan 25 MG TAB PO SCH (09:24)
[2022-12-27] MEDS: Pantoprazole 40 MG VIAL IVP SCH ×2 (09:24→20:59)
[2022-12-27] MEDS: Dextrose 5 %-0.45 % NaCl 1,000 ML IV SCH ×2 (09:26→20:00)
[2022-12-27] MEDS: levETIRAcetam 500 MG TAB PO SCH ×2 (09:26→20:59)
[2022-12-27] MEDS: Tamsulosin HCl 0.4 MG CAP PO SCH (09:26)
[2022-12-27 14:37] LABS: Potassium 3.8 mmol/L (3.5-5.1)
[2022-12-27] MEDS: Atorvastatin Calcium 40 MG TAB PO SCH (20:59)
[2022-12-27] MEDS: DULoxetine 20 MG CAP PO SCH (20:59)
[2022-12-28] MEDS: Dextrose 5 %-0.45 % NaCl 1,000 ML IV SCH ×2 (05:55→15:50)
[2022-12-28 06:25] LABS: ALT (SGPT) 10 U/L (8-55); AST (SGOT) 19 U/L (5-34); Albumin 3.2 g/dL (3.4-4.8); Alkaline Phosphatase 131 U/L (40-110); Anion Gap 12 mmol/L (10-20); BUN (Urea Nitrogen) 5 mg/dL (8.4-25.7); Bilirubin, Total 1.1 mg/dL (0.2-1.2); Calc. Creatinine Clearance 67 mL/min (70-130); Calcium 9.3 mg/dL (7.8-10.44); Carbon Dioxide 21 mmol/L (23-31); Chloride 113 mmol/L (98-107); Estimated GFR 95; Globulin 3.3 g/dL (2.4-3.5); Glucose 145 mg/dL (80-115); Potassium 3.7 mmol/L (3.5-5.1); Protein, Total 6.5 g/dL (5.8-8.1); Sodium 142 mmol/L (136-145)
[2022-12-28 06:43] LABS: Band 1 % (5-11); Eosinophils 6 % (0-10); Hemoglobin 12.2 g/dL (14.0-18.0); Lymphocytes 58 % (21-51); MDiff Complete? YES; Mean Corpuscular HGB CONC 34.3 g/dL (32.0-36.0); Mean Corpuscular Hemoglobin 31.9 pg (27.0-31.0); Mean Corpuscular Volume 92.9 fl (78.0-98.0); Mean Platelet Volume 10.9 fL (7.4-10.4); Monocytes 3 % (0-10); Neutrophil 31 % (42-75); Platelet Count 131 10x3/uL (130-400); Platelet Morphology Comment Appears Adequate; RBC Distribution Width 13.8 % (11.5-14.5); RBC Morphology Normal; Red Blood Cell (RBC) Count 3.83 mill/uL (4.70-6.10); White Blood Cell (WBC) Count 6.1 10x3/uL (4.8-10.8)
[2022-12-28] MEDS: Pantoprazole 40 MG VIAL IVP SCH ×2 (09:10→20:53)
[2022-12-28] MEDS: levETIRAcetam 500 MG TAB PO SCH ×3 (09:10→20:52)
[2022-12-28] MEDS: Tamsulosin HCl 0.4 MG CAP PO SCH ×2 (09:11→09:23)
[2022-12-28] MEDS: Spironolactone 25 MG TAB PO SCH ×2 (09:11→09:23)
[2022-12-28] MEDS: Losartan 25 MG TAB PO SCH ×2 (09:11→09:23)
[2022-12-28] MEDS: Atorvastatin Calcium 40 MG TAB PO SCH (20:51)
[2022-12-28] MEDS: DULoxetine 20 MG CAP PO SCH (20:52)
[2022-12-29] MEDS: Dextrose 5 %-0.45 % NaCl 1,000 ML IV SCH ×3 (02:42→23:50)
[2022-12-29 05:39] LABS: Band 4 % (5-11); Eosinophils 1 % (0-10); Hemoglobin 11.3 g/dL (14.0-18.0); Hypochromia SLIGHT = 6-15 cells (100X) (0-5/hpf); Lymphocytes 38 % (21-51); MDiff Complete? YES; Mean Corpuscular HGB CONC 32.5 g/dL (32.0-36.0); Mean Corpuscular Hemoglobin 30.3 pg (27.0-31.0); Mean Corpuscular Volume 93.1 fl (78.0-98.0); Mean Platelet Volume 11.4 fL (7.4-10.4); Monocytes 3 % (0-10); Neutrophil 49 % (42-75); Platelet Count 135 10x3/uL (130-400); Platelet Morphology Comment Appears Adequate; RBC Distribution Width 13.5 % (11.5-14.5); Reactive Lymphocytes 5 % (0-10); Red Blood Cell (RBC) Count 3.72 mill/uL (4.70-6.10); White Blood Cell (WBC) Count 6.9 10x3/uL (4.8-10.8)
[2022-12-29 05:49] LABS: ALT (SGPT) 12 U/L (8-55); AST (SGOT) 24 U/L (5-34); Albumin 3.2 g/dL (3.4-4.8); Alkaline Phosphatase 122 U/L (40-110); Anion Gap 10 mmol/L (10-20); BUN (Urea Nitrogen) Less than 4 mg/dL (8.4-25.7); Bilirubin, Total 1.1 mg/dL (0.2-1.2); Calc. Creatinine Clearance 61 mL/min (70-130); Calcium 9.2 mg/dL (7.8-10.44); Carbon Dioxide 23 mmol/L (23-31); Chloride 112 mmol/L (98-107); Estimated GFR 89; Glucose 134 mg/dL (80-115); Potassium 3.5 mmol/L (3.5-5.1); Protein, Total 6.2 g/dL (5.8-8.1); Sodium 141 mmol/L (136-145)
[2022-12-29] MEDS ORDERED: Potassium Chloride 20 MEQ TAB PO SCH (08:00)
[2022-12-29] MEDS: Tamsulosin HCl 0.4 MG CAP PO SCH (10:03)
[2022-12-29] MEDS: levETIRAcetam 500 MG TAB PO SCH ×2 (10:03→21:26)
[2022-12-29] MEDS: Losartan 25 MG TAB PO SCH (10:03)
[2022-12-29] MEDS: Spironolactone 25 MG TAB PO SCH (10:03)
[2022-12-29] MEDS: Pantoprazole 40 MG VIAL IVP SCH ×2 (10:04→21:26)
[2022-12-29] MEDS: Atorvastatin Calcium 40 MG TAB PO SCH (21:26)
[2022-12-29] MEDS: DULoxetine 20 MG CAP PO SCH (21:26)
[2022-12-30 05:29] LABS: #Basophils 0.1 thou/uL (0.0-0.2); #Eosinphils 0.3 thou/uL (0.0-0.7); #Lymphocytes 3.9 thou/uL (1.20-3.40); #Monocytes 0.5 thou/uL (0.11-0.59); #Neutrophils 3.4 thou/uL (1.40-6.50); %Basophils 0.8 % (0.0-1.0); %Eosinophils 4.2 % (0.0-10.0); %Lymphocytes 48.1 % (21.0-51.0); %Monocytes 5.5 % (0.0-10.0); %Neutrophils 41.4 % (42.0-75.0); Hemoglobin 11.5 g/dL (14.0-18.0); Mean Corpuscular HGB CONC 32.8 g/dL (32.0-36.0); Mean Corpuscular Hemoglobin 30.7 pg (27.0-31.0); Mean Corpuscular Volume 93.7 fl (78.0-98.0); Mean Platelet Volume 11.4 fL (7.4-10.4); Platelet Count 136 10x3/uL (130-400); RBC Distribution Width 13.6 % (11.5-14.5); Red Blood Cell (RBC) Count 3.74 mill/uL (4.70-6.10); White Blood Cell (WBC) Count 8.1 10x3/uL (4.8-10.8)
[2022-12-30 05:54] LABS: ALT (SGPT) 10 U/L (8-55); AST (SGOT) 19 U/L (5-34); Albumin 3.1 g/dL (3.4-4.8); Alkaline Phosphatase 130 U/L (40-110); Anion Gap 13 mmol/L (10-20); BUN (Urea Nitrogen) Less than 4 mg/dL (8.4-25.7); Calc. Creatinine Clearance 64 mL/min (70-130); Calcium 8.9 mg/dL (7.8-10.44); Carbon Dioxide 19 mmol/L (23-31); Chloride 115 mmol/L (98-107); Estimated GFR 91; Globulin 3.1 g/dL (2.4-3.5); Glucose 112 mg/dL (80-115); Potassium 3.7 mmol/L (3.5-5.1); Protein, Total 6.2 g/dL (5.8-8.1); Sodium 143 mmol/L (136-145)
[2022-12-30] MEDS: Spironolactone 25 MG TAB PO SCH (09:06)
[2022-12-30] MEDS: levETIRAcetam 500 MG TAB PO SCH (09:07)
[2022-12-30] MEDS: Tamsulosin HCl 0.4 MG CAP PO SCH (09:07)
[2022-12-30] MEDS: Losartan 25 MG TAB PO SCH (09:07)
[2022-12-30] MEDS: Pantoprazole 40 MG VIAL IVP SCH (09:07)
[2022-12-30] MEDS: Dextrose 5 %-0.45 % NaCl 1,000 ML IV SCH (10:30)
[2022-12-30 12:28] VITALS: BP 132/86; TEMP 97.6
[2022-12-30 14:59] LABS: Cardiac Risk 2.5 (Less than 4.5)
== END 2022-12-30 16:17 | DRG 64 ==
LOC: ERS 20:39 → ERHOLD 23:00 → NEURO 12-26 18:35 → OBSVTOIN 12-27 09:22
PROVIDERS: ADMIT Internal Medicine; ATTEND Hospitalist
DX: I63.9 Cerebral infarction, unspecified (principal); I61.9 Nontraumatic intracerebral hemorrhage, unspecified; G82.20 Paraplegia, unspecified; I50.22 Chronic systolic (congestive) heart failure; R00.1 Bradycardia, unspecified; I11.0 Hypertensive heart disease with heart failure; E78.5 Hyperlipidemia, unspecified; F17.210 Nicotine dependence, cigarettes, uncomplicated; R53.81 Other malaise; E11.51 Type 2 diabetes mellitus with diabetic peripheral angiopathy without gangrene; K64.4 Residual hemorrhoidal skin tags; I44.7 Left bundle-branch block, unspecified; I25.10 Atherosclerotic heart disease of native coronary artery without angina pectoris; E11.42 Type 2 diabetes mellitus with diabetic polyneuropathy; I25.2 Old myocardial infarction; Z95.5 Presence of coronary angioplasty implant and graft; Z89.512 Acquired absence of left leg below knee; Z88.8 Allergy status to other drugs, medicaments and biological substances; Z79.82 Long term (current) use of aspirin; Z79.899 Other long term (current) drug therapy; Z79.84 Long term (current) use of oral hypoglycemic drugs
CPT/HCPCS: 36415; 36416; 70450; 70551; 80053; 80061; 83605; 83735; 84484; 85025; 85610; 85730; 93005; 93010; 93306; 93880; 96374; 96375; 96376; 99285; C9113; G0378; G0379; J1815; J3475; J7042

== ENCOUNTER 2023-01-20 12:24 | Inpatient (IN) | payer MEDICARE ==
[2023-01-20 12:58] LABS: #Eosinphils 0.1 thou/uL (0.0-0.7); #Monocytes 0.4 thou/uL (0.11-0.59); #Neutrophils 4.5 thou/uL (1.40-6.50); %Basophils 0.4 % (0.0-1.0); %Eosinophils 0.6 % (0.0-10.0); %Monocytes 4.5 % (0.0-10.0); %Neutrophils 49.9 % (42.0-75.0); Hemoglobin 11.7 g/dL (14.0-18.0); Mean Corpuscular HGB CONC 32.4 g/dL (32.0-36.0); Mean Corpuscular Hemoglobin 29.3 pg (27.0-31.0); Mean Corpuscular Volume 90.3 fl (78.0-98.0); Mean Platelet Volume 11.6 fL (7.4-10.4); Platelet Count 200 10x3/uL (130-400); RBC Distribution Width 15.3 % (11.5-14.5)
[2023-01-20 13:21] LABS: ALT (SGPT) 19 U/L (8-55); AST (SGOT) 16 U/L (5-34); Albumin 3.5 g/dL (3.4-4.8); Alkaline Phosphatase 96 U/L (40-110); Anion Gap 10 mmol/L (10-20); BUN (Urea Nitrogen) 23 mg/dL (8.4-25.7); Bilirubin, Total 1.1 mg/dL (0.2-1.2); Calc. Creatinine Clearance 0 mL/min (70-130); Calcium 9.5 mg/dL (7.8-10.44); Carbon Dioxide 19 mmol/L (23-31); Chloride 115 mmol/L (98-107); Estimated GFR 96; Glucose 124 mg/dL (80-115); Potassium 4.2 mmol/L (3.5-5.1); Protein, Total 6.5 g/dL (5.8-8.1); Sodium 140 mmol/L (136-145)
[2023-01-20] MEDS ORDERED: levETIRAcetam 500 MG/5 ML VIAL SLOW IVP SCH (13:30)
[2023-01-20] MEDS ORDERED: Ondansetron ODT 4 MG TAB PO PRN (14:29)
[2023-01-20] MEDS ORDERED: Acetaminophen 325 MG TAB PO PRN (14:29)
[2023-01-20] MEDS ORDERED: Ondansetron PF 4 MG/2 ML Vial IVP PRN (14:29)
[2023-01-20] MEDS ORDERED: Dextrose 50% Abboject 50 ML SYRINGE SLOW IVP PRN (15:13)
[2023-01-20] MEDS ORDERED: HumaLOG 300 UNITS/3 ML VIAL SC PRN (15:13)
[2023-01-20] MEDS ORDERED: Dextrose 5% in Water 1,000 ML IV PRN (15:13)
[2023-01-20 15:36] LABS: Magnesium 1.9 mg/dL (1.6-2.6)
[2023-01-20 16:25] LABS: Lactic Acid 1.2 mmol/L (0.5-2.2)
[2023-01-20 16:28] LABS: CK (CPK) 29 U/L (30-200); Calcium 9.6 mg/dL (7.8-10.44)
[2023-01-20] MEDS: Nicotine 14 MG PATCH TD SCH (19:24)
[2023-01-21 05:16] LABS: #Eosinphils 0.1 thou/uL (0.0-0.7); #Monocytes 0.4 thou/uL (0.11-0.59); #Neutrophils 4.7 thou/uL (1.40-6.50); %Basophils 0.4 % (0.0-1.0); %Eosinophils 0.7 % (0.0-10.0); %Lymphocytes 44.9 % (21.0-51.0); %Monocytes 4.1 % (0.0-10.0); %Neutrophils 49.5 % (42.0-75.0); Hemoglobin 11.2 g/dL (14.0-18.0); Mean Corpuscular HGB CONC 31.3 g/dL (32.0-36.0); Mean Corpuscular Hemoglobin 28.6 pg (27.0-31.0); Mean Corpuscular Volume 91.6 fl (78.0-98.0); Mean Platelet Volume 11.7 fL (7.4-10.4); Platelet Count 210 10x3/uL (130-400); RBC Distribution Width 15.4 % (11.5-14.5); Red Blood Cell (RBC) Count 3.91 mill/uL (4.70-6.10); White Blood Cell (WBC) Count 9.5 10x3/uL (4.8-10.8)
[2023-01-21 05:35] LABS: Anion Gap 13 mmol/L (10-20); BUN (Urea Nitrogen) 23 mg/dL (8.4-25.7); Calc. Creatinine Clearance 69 mL/min (70-130); Calcium 9.3 mg/dL (7.8-10.44); Carbon Dioxide 18 mmol/L (23-31); Chloride 113 mmol/L (98-107); Estimated GFR 95; Glucose 126 mg/dL (80-115); Potassium 3.8 mmol/L (3.5-5.1); Sodium 140 mmol/L (136-145)
[2023-01-21] MEDS: levETIRAcetam 500 MG/5 ML VIAL SLOW IVP SCH ×2 (08:45→20:48)
[2023-01-21] MEDS ORDERED: levETIRAcetam in NS 1,000 MG in Premix Bag 1 BAG IVPB SCH (09:00)
[2023-01-21] MEDS: HumaLOG 300 UNITS/3 ML VIAL SC PRN (12:30)
[2023-01-21] MEDS: Nicotine 14 MG PATCH TD SCH (16:25)
[2023-01-22 04:56] LABS: #Eosinphils 0.1 thou/uL (0.0-0.7); #Monocytes 0.5 thou/uL (0.11-0.59); #Neutrophils 4.6 thou/uL (1.40-6.50); %Basophils 0.4 % (0.0-1.0); %Eosinophils 0.9 % (0.0-10.0); %Lymphocytes 43.2 % (21.0-51.0); %Monocytes 4.9 % (0.0-10.0); %Neutrophils 50.1 % (42.0-75.0); Hemoglobin 11.1 g/dL (14.0-18.0); Mean Corpuscular HGB CONC 31.5 g/dL (32.0-36.0); Mean Corpuscular Hemoglobin 28.8 pg (27.0-31.0); Mean Corpuscular Volume 91.4 fl (78.0-98.0); Mean Platelet Volume 11.7 fL (7.4-10.4); Platelet Count 192 10x3/uL (130-400); RBC Distribution Width 15.3 % (11.5-14.5); Red Blood Cell (RBC) Count 3.85 mill/uL (4.70-6.10); White Blood Cell (WBC) Count 9.2 10x3/uL (4.8-10.8)
[2023-01-22 05:17] LABS: Anion Gap 11 mmol/L (10-20); BUN (Urea Nitrogen) 24 mg/dL (8.4-25.7); Calc. Creatinine Clearance 70 mL/min (70-130); Carbon Dioxide 17 mmol/L (23-31); Chloride 117 mmol/L (98-107); Estimated GFR 95; Glucose 159 mg/dL (80-115); Potassium 3.6 mmol/L (3.5-5.1); Sodium 141 mmol/L (136-145)
[2023-01-22 05:27] VITALS: BMI 22.3
[2023-01-22] MEDS ORDERED: metFORMIN 500 MG TAB PO SCH (09:15)
[2023-01-22] MEDS ORDERED: Tamsulosin HCl 0.4 MG CAP PO SCH (09:15)
[2023-01-22] MEDS ORDERED: Losartan 25 MG TAB PO SCH (09:15)
[2023-01-22] MEDS: levETIRAcetam 500 MG/5 ML VIAL SLOW IVP SCH (09:40)
[2023-01-22 12:29] VITALS: BP 119/72; TEMP 97.9
[2023-01-22] MEDS: HumaLOG 300 UNITS/3 ML VIAL SC PRN (12:33)
[2023-01-22] MEDS: Nicotine 14 MG PATCH TD SCH (15:33)
[2023-01-22] MEDS ORDERED: DULoxetine 20 MG CAP PO SCH (21:00)
[2023-01-22] MEDS ORDERED: Atorvastatin Calcium 40 MG TAB PO SCH (21:00)
[2023-01-23] MEDS ORDERED: metFORMIN 500 MG TAB PO SCH (08:00)
[2023-01-23] MEDS ORDERED: Tamsulosin HCl 0.4 MG CAP PO SCH (09:00)
[2023-01-23] MEDS ORDERED: Losartan 25 MG TAB PO SCH (09:00)
== END 2023-01-22 15:30 | DRG 101 ==
LOC: ERS 12:24 → NEURO 17:18 → OBSVTOIN 01-21 15:47
PROVIDERS: ADMIT Internal Medicine; ATTEND Internal Medicine
PROC: 4A10X4Z Monitoring of Central Nervous Electrical Activity, External Approach (ICD-10-PCS; principal; 2023-01-22)
PROC: 0T9B70Z Drainage of Bladder with Drainage Device, Via Natural or Artificial Opening (ICD-10-PCS; 2023-01-22)
DX: R56.9 Unspecified convulsions (principal); I50.22 Chronic systolic (congestive) heart failure; F17.210 Nicotine dependence, cigarettes, uncomplicated; I25.10 Atherosclerotic heart disease of native coronary artery without angina pectoris; E11.51 Type 2 diabetes mellitus with diabetic peripheral angiopathy without gangrene; I11.0 Hypertensive heart disease with heart failure; E11.42 Type 2 diabetes mellitus with diabetic polyneuropathy; Z66 Do not resuscitate; E78.5 Hyperlipidemia, unspecified; Z88.8 Allergy status to other drugs, medicaments and biological substances; Z79.84 Long term (current) use of oral hypoglycemic drugs; Z79.01 Long term (current) use of anticoagulants; Z79.4 Long term (current) use of insulin; Z79.899 Other long term (current) drug therapy; Z95.5 Presence of coronary angioplasty implant and graft; Z98.890 Other specified postprocedural states; Z89.512 Acquired absence of left leg below knee; I25.2 Old myocardial infarction; Z86.73 Personal history of transient ischemic attack (TIA), and cerebral infarction without residual deficits
CPT/HCPCS: 36415; 36416; 70450; 70551; 80048; 80053; 82550; 83036; 83605; 83735; 84484; 85025; 93005; 94760; 95816; 95819; 95957; 96365; 96376; G0378; J1815; J1953

== ENCOUNTER 2023-02-15 21:23 | Inpatient (IN) | payer MEDICARE ==
[~2023-02-15 21:23] MED LIST: Iopamidol-370 76% 500 ML MDV (1 ML CHARGE) ONE
[2023-02-15 22:07] LABS: #Basophils 0.1 thou/uL (0.0-0.2); #Eosinphils 0.2 thou/uL (0.0-0.7); #Monocytes 0.4 thou/uL (0.11-0.59); #Neutrophils 3.5 thou/uL (1.40-6.50); %Basophils 0.6 % (0.0-1.0); %Eosinophils 2.6 % (0.0-10.0); %Lymphocytes 49.2 % (21.0-51.0); %Monocytes 4.4 % (0.0-10.0); %Neutrophils 42.8 % (42.0-75.0); Hemoglobin 11.7 g/dL (14.0-18.0); Mean Corpuscular HGB CONC 31.7 g/dL (32.0-36.0); Mean Corpuscular Hemoglobin 28.7 pg (27.0-31.0); Mean Corpuscular Volume 90.4 fl (78.0-98.0); Mean Platelet Volume 11.3 fL (7.4-10.4); Platelet Count 210 10x3/uL (130-400); RBC Distribution Width 15.1 % (11.5-14.5); Red Blood Cell (RBC) Count 4.08 mill/uL (4.70-6.10); White Blood Cell (WBC) Count 8.2 10x3/uL (4.8-10.8)
[2023-02-15 22:30] LABS: Bacteria/HPF 1+ HPF (None Seen); Bilirubin Negative (Negative); Blood, Urine 2+ (Negative); CAUTI Indications for Culture Alt mental st,lethar; Clarity Turbid (Clear); Glucose, Urine (Dipstick) Normal (Negative); Ketone, Urine Negative (Negative); Leukocyte 500 Leu/uL (Negative); Nitrite Negative (Negative); Protein, Urine (Dipstick) 30 mg/dL (Neg-Trace); Squamous Epithelial None Seen HPF (0-3); Urobilinogen Normal mg/dL (Less than 2); WBC/HPF Greater than 50 HPF (0-3); pH, Urine 6.5 (5.0-9.0)
[2023-02-15 22:31] LABS: Urine Culture Reflex Yes Yes
[2023-02-15 22:31] LABS: ALT (SGPT) 17 U/L (8-55); AST (SGOT) 19 U/L (5-34); Acetaminophen Less than 10 mcg/mL (10.0-30.0); Albumin 3.4 g/dL (3.4-4.8); Alcohol Less than 10.0 mg/dL (Less than 10); Alkaline Phosphatase 128 U/L (40-110); Anion Gap 12 mmol/L (10-20); BUN (Urea Nitrogen) 12 mg/dL (8.4-25.7); Bilirubin, Total 0.7 mg/dL (0.2-1.2); Calc. Creatinine Clearance 0 mL/min (70-130); Calcium 9.3 mg/dL (7.8-10.44); Carbon Dioxide 18 mmol/L (23-31); Chloride 113 mmol/L (98-107); Estimated GFR 95; Globulin 3.3 g/dL (2.4-3.5); Glucose 151 mg/dL (80-115); Lipase 44 U/L (8-78); Protein, Total 6.7 g/dL (5.8-8.1); Salicylate Less than 8.0 mg/dL (15.0-30.0); Sodium 140 mmol/L (136-145)
[2023-02-15 22:34] LABS: Amphetamine Not Detected (NotDetected); Barbiturates Screen Not Detected (NotDetected); Benzodiazepine Screen Not Detected (NotDetected); Cocaine Metabolite Screen Not Detected (NotDetected); Methadone Not Detected (NotDetected); Methamphetamine Not Detected (NotDetected); Opiate Screen Not Detected (NotDetected); Oxycodone Screen Not Detected (NotDetected); Phencyclidine (PCP) Not Detected (NotDetected); THC/Cannabinoid Screen Not Detected (NotDetected); Tricyclic Screen Not Detected (NotDetected)
[2023-02-15] MEDS ORDERED: cefTRIAXone (ROCEPHIN) 1 GM VIAL ONE (23:16)
[2023-02-16] MEDS ORDERED: Calcium Carbonate 500 MG ChewTAB PO PRN (01:37)
[2023-02-16] MEDS ORDERED: Ondansetron PF 4 MG/2 ML Vial IVP PRN (01:37)
[2023-02-16] MEDS ORDERED: Dextrose 50% Abboject 50 ML SYRINGE SLOW IVP PRN (01:37)
[2023-02-16] MEDS ORDERED: HumaLOG 300 UNITS/3 ML VIAL SC PRN ×2 (01:37)
[2023-02-16] MEDS ORDERED: Senokot S 8.6-50 MG TAB PO PRN (01:37)
[2023-02-16] MEDS ORDERED: Dextrose 5% in Water 1,000 ML IV PRN (01:37)
[2023-02-16] MEDS ORDERED: Acetaminophen 325 MG TAB PO PRN (01:37)
[2023-02-16] MEDS ORDERED: Glucagon 1 MG/ML KIT IM PRN (01:37)
[2023-02-16] MEDS ORDERED: Ondansetron ODT 4 MG TAB PO PRN (01:37)
[2023-02-16] MEDS ORDERED: Lactated Ringer's 1,000 ML IV SCH (02:00)
[2023-02-16] MEDS ORDERED: Senokot S 8.6-50 MG TAB PO SCH (02:15)
[2023-02-16] MEDS: Potassium Chloride 20 MEQ in Premix Bag 1 BAG IVPB SCH ×3 (02:21→08:39)
[2023-02-16 03:00] LABS: #Basophils 0.1 thou/uL (0.0-0.2); #Eosinphils 0.2 thou/uL (0.0-0.7); #Monocytes 0.4 thou/uL (0.11-0.59); #Neutrophils 3.9 thou/uL (1.40-6.50); %Basophils 0.7 % (0.0-1.0); %Eosinophils 2.5 % (0.0-10.0); %Monocytes 4.6 % (0.0-10.0); Hemoglobin 10.8 g/dL (14.0-18.0); Mean Corpuscular HGB CONC 32.7 g/dL (32.0-36.0); Mean Corpuscular Hemoglobin 29.8 pg (27.0-31.0); Mean Corpuscular Volume 91.2 fl (78.0-98.0); Mean Platelet Volume 10.7 fL (7.4-10.4); Platelet Count 190 10x3/uL (130-400); Red Blood Cell (RBC) Count 3.62 mill/uL (4.70-6.10); White Blood Cell (WBC) Count 8.5 10x3/uL (4.8-10.8)
[2023-02-16 03:25] LABS: Magnesium 1.9 mg/dL (1.6-2.6)
[2023-02-16 04:23] LABS: Anion Gap 13 mmol/L (10-20); BUN (Urea Nitrogen) 12 mg/dL (8.4-25.7); Calc. Creatinine Clearance 68 mL/min (70-130); Calcium 8.8 mg/dL (7.8-10.44); Carbon Dioxide 17 mmol/L (23-31); Chloride 116 mmol/L (98-107); Estimated GFR 96; Glucose 120 mg/dL (80-115); Potassium 3.1 mmol/L (3.5-5.1); Sodium 143 mmol/L (136-145)
[2023-02-16] MEDS: Tamsulosin HCl 0.4 MG CAP PO SCH (08:41)
[2023-02-16] MEDS: Losartan 25 MG TAB PO SCH ×2 (08:41→08:56)
[2023-02-16] MEDS: levETIRAcetam 500 MG TAB PO SCH ×2 (08:41→09:00)
[2023-02-16] MEDS: metFORMIN 500 MG TAB PO SCH ×2 (08:41→08:55)
[2023-02-16] MEDS ORDERED: levETIRAcetam 500 MG/5 ML VIAL SLOW IVP SCH ×2 (09:45→14:30)
[2023-02-16] MEDS ORDERED: Lorazepam 2 MG/ML VIAL ONE (10:39)
[2023-02-16 11:00] LABS: Base Excess (BEa) -13.1 mEq/L (-2.0 to +3.0); CO2 Tension 26.2 mmHg (35.0-45.0); Calcium, Ionized (arterial) 1.28 mmol/L (1.12-1.30); Carboxyhemoglobin (COHb) 0.3 gm% (0.0-3.0); Hematocrit-ABG 38 % (42.0-52.0); Hemoglobin (Hb) 12.8 g/dL (14.0-18.0); Potassium - ABG Lab 3.97 mmol/L (3.70-5.30); pH, Arterial 7.279 (7.35-7.45)
[2023-02-16 11:00] LABS: #Basophils 0.1 thou/uL (0.0-0.2); #Eosinphils 0.1 thou/uL (0.0-0.7); #Monocytes 0.7 thou/uL (0.11-0.59); #Neutrophils 10.3 thou/uL (1.40-6.50); %Basophils 0.3 % (0.0-1.0); %Eosinophils 0.6 % (0.0-10.0); %Lymphocytes 29.9 % (21.0-51.0); %Monocytes 4.2 % (0.0-10.0); %Neutrophils 64.6 % (42.0-75.0); Hemoglobin 11.9 g/dL (14.0-18.0); Mean Corpuscular HGB CONC 30.7 g/dL (32.0-36.0); Mean Corpuscular Hemoglobin 29.4 pg (27.0-31.0); Mean Platelet Volume 11.1 fL (7.4-10.4); Platelet Count 231 10x3/uL (130-400); RBC Distribution Width 15.2 % (11.5-14.5); Red Blood Cell (RBC) Count 4.05 mill/uL (4.70-6.10)
[2023-02-16 11:03] LABS: Puncture Site LRA
[2023-02-16 11:05] LABS: Mean Corpuscular Volume 95.6 fl (78.0-98.0)
[2023-02-16] MEDS ORDERED: Lorazepam 2 MG/ML VIAL SLOW IVP PRN (11:21)
[2023-02-16 11:38] LABS: ALT (SGPT) 16 U/L (8-55); AST (SGOT) 16 U/L (5-34); Albumin 3.6 g/dL (3.4-4.8); Alkaline Phosphatase 135 U/L (40-110); Anion Gap 19 mmol/L (10-20); BUN (Urea Nitrogen) 10 mg/dL (8.4-25.7); Bilirubin, Total 0.6 mg/dL (0.2-1.2); Calc. Creatinine Clearance 64 mL/min (70-130); Calcium 9.4 mg/dL (7.8-10.44); Carbon Dioxide 12 mmol/L (23-31); Chloride 115 mmol/L (98-107); Estimated GFR 94; Globulin 3.5 g/dL (2.4-3.5); Glucose 163 mg/dL (80-115); Potassium 3.4 mmol/L (3.5-5.1); Protein, Total 7.1 g/dL (5.8-8.1); Sodium 143 mmol/L (136-145)
[2023-02-16 14:30] LABS: Magnesium 1.9 mg/dL (1.6-2.6)
[2023-02-16] MEDS: Atorvastatin Calcium 40 MG TAB PO SCH (19:56)
[2023-02-16] MEDS: DULoxetine 20 MG CAP PO SCH (19:56)
[2023-02-16] MEDS: cefTRIAXone\\ROCEPHIN 1 GM in Sodium Chloride 0.9% 100 ML IVPB SCH (20:15)
[2023-02-16] MEDS: levETIRAcetam 500 MG/5 ML VIAL SLOW IVP SCH (20:15)
[2023-02-16] MEDS ORDERED: DULoxetine 20 MG CAP PO SCH (21:00)
[2023-02-17 04:02] LABS: #Eosinphils 0.1 thou/uL (0.0-0.7); #Monocytes 0.6 thou/uL (0.11-0.59); #Neutrophils 9.9 thou/uL (1.40-6.50); %Basophils 0.3 % (0.0-1.0); %Eosinophils 0.4 % (0.0-10.0); %Lymphocytes 25.5 % (21.0-51.0); %Neutrophils 69.4 % (42.0-75.0); Hemoglobin 11.6 g/dL (14.0-18.0); Mean Corpuscular HGB CONC 32.3 g/dL (32.0-36.0); Mean Corpuscular Hemoglobin 29.3 pg (27.0-31.0); Mean Platelet Volume 11.2 fL (7.4-10.4); Platelet Count 209 10x3/uL (130-400); RBC Distribution Width 15.4 % (11.5-14.5); Red Blood Cell (RBC) Count 3.96 mill/uL (4.70-6.10); White Blood Cell (WBC) Count 14.2 10x3/uL (4.8-10.8)
[2023-02-17 04:27] LABS: ALT (SGPT) 11 U/L (8-55); AST (SGOT) 10 U/L (5-34); Albumin 3.4 g/dL (3.4-4.8); Alkaline Phosphatase 121 U/L (40-110); Anion Gap 13 mmol/L (10-20); BUN (Urea Nitrogen) 10 mg/dL (8.4-25.7); Bilirubin, Total 0.8 mg/dL (0.2-1.2); Calc. Creatinine Clearance 64 mL/min (70-130); Calcium 9.8 mg/dL (7.8-10.44); Carbon Dioxide 20 mmol/L (23-31); Chloride 116 mmol/L (98-107); Estimated GFR 94; Globulin 3.5 g/dL (2.4-3.5); Glucose 144 mg/dL (80-115); Protein, Total 6.9 g/dL (5.8-8.1); Sodium 145 mmol/L (136-145)
[2023-02-17 04:38] LABS: Mean Corpuscular Volume 90.7 fl (78.0-98.0)
[2023-02-17] MEDS: Lactated Ringer's 1,000 ML IV SCH ×2 (05:47→17:59)
[2023-02-17] MEDS: levETIRAcetam 500 MG/5 ML VIAL SLOW IVP SCH ×2 (08:15→21:18)
[2023-02-17] MEDS: metFORMIN 500 MG TAB PO SCH (08:15)
[2023-02-17] MEDS: Tamsulosin HCl 0.4 MG CAP PO SCH (08:15)
[2023-02-17] MEDS: Losartan 25 MG TAB PO SCH (08:16)
[2023-02-17] MEDS: cefTRIAXone\\ROCEPHIN 1 GM in Sodium Chloride 0.9% 100 ML IVPB SCH (21:18)
[2023-02-17] MEDS: Atorvastatin Calcium 40 MG TAB PO SCH (21:18)
[2023-02-17] MEDS: DULoxetine 20 MG CAP PO SCH (21:19)
[2023-02-18 05:32] LABS: #Eosinphils 0.2 thou/uL (0.0-0.7); #Monocytes 0.5 thou/uL (0.11-0.59); #Neutrophils 6.2 thou/uL (1.40-6.50); %Basophils 0.3 % (0.0-1.0); %Eosinophils 1.8 % (0.0-10.0); %Lymphocytes 32.8 % (21.0-51.0); %Monocytes 4.4 % (0.0-10.0); %Neutrophils 60.3 % (42.0-75.0); Mean Corpuscular HGB CONC 32.3 g/dL (32.0-36.0); Mean Corpuscular Hemoglobin 29.5 pg (27.0-31.0); Mean Corpuscular Volume 91.4 fl (78.0-98.0); Mean Platelet Volume 11.6 fL (7.4-10.4); Platelet Count 192 10x3/uL (130-400); RBC Distribution Width 15.5 % (11.5-14.5); Red Blood Cell (RBC) Count 3.39 mill/uL (4.70-6.10); White Blood Cell (WBC) Count 10.2 10x3/uL (4.8-10.8)
[2023-02-18 05:55] LABS: Anion Gap 8 mmol/L (10-20); BUN (Urea Nitrogen) 9 mg/dL (8.4-25.7); Calc. Creatinine Clearance 76 mL/min (70-130); Calcium 9.3 mg/dL (7.8-10.44); Carbon Dioxide 21 mmol/L (23-31); Chloride 114 mmol/L (98-107); Estimated GFR 99; Glucose 105 mg/dL (80-115); Potassium 3.4 mmol/L (3.5-5.1); Sodium 140 mmol/L (136-145)
[2023-02-18] MEDS: Lactated Ringer's 1,000 ML IV SCH ×2 (07:57→21:32)
[2023-02-18] MEDS: Potassium Chloride 20 MEQ in Premix Bag 1 BAG IVPB SCH ×2 (07:58→10:55)
[2023-02-18] MEDS: Tamsulosin HCl 0.4 MG CAP PO SCH (08:02)
[2023-02-18] MEDS: Losartan 25 MG TAB PO SCH (08:02)
[2023-02-18] MEDS: metFORMIN 500 MG TAB PO SCH (08:02)
[2023-02-18] MEDS: levETIRAcetam 500 MG/5 ML VIAL SLOW IVP SCH (08:02)
[2023-02-18] MEDS: Cephalexin 250 MG CAP PO SCH ×3 (10:58→23:30)
[2023-02-18] MEDS ORDERED: Senokot S 8.6-50 MG TAB PO SCH (11:20)
[2023-02-18] MEDS: levETIRAcetam 500 MG TAB PO SCH (21:27)
[2023-02-18] MEDS: Atorvastatin Calcium 40 MG TAB PO SCH (21:28)
[2023-02-18] MEDS: DULoxetine 20 MG CAP PO SCH (21:28)
[2023-02-18] MEDS: Senokot S 8.6-50 MG TAB PO SCH (21:28)
[2023-02-19] MEDS: Cephalexin 250 MG CAP PO SCH ×3 (06:06→17:18)
[2023-02-19 06:24] LABS: #Eosinphils 0.3 thou/uL (0.0-0.7); #Monocytes 0.3 thou/uL (0.11-0.59); #Neutrophils 3.4 thou/uL (1.40-6.50); %Basophils 0.6 % (0.0-1.0); %Lymphocytes 42.6 % (21.0-51.0); %Monocytes 4.6 % (0.0-10.0); %Neutrophils 47.9 % (42.0-75.0); Hemoglobin 9.9 g/dL (14.0-18.0); Mean Corpuscular HGB CONC 32.5 g/dL (32.0-36.0); Mean Corpuscular Hemoglobin 29.2 pg (27.0-31.0); Mean Platelet Volume 11.4 fL (7.4-10.4); Platelet Count 189 10x3/uL (130-400); RBC Distribution Width 15.3 % (11.5-14.5); Red Blood Cell (RBC) Count 3.39 mill/uL (4.70-6.10)
[2023-02-19 06:29] LABS: Anion Gap 10 mmol/L (10-20); BUN (Urea Nitrogen) 6 mg/dL (8.4-25.7); Calc. Creatinine Clearance 93 mL/min (70-130); Calcium 8.9 mg/dL (7.8-10.44); Carbon Dioxide 19 mmol/L (23-31); Chloride 114 mmol/L (98-107); Estimated GFR 105; Glucose 102 mg/dL (80-115); Potassium 3.3 mmol/L (3.5-5.1); Sodium 140 mmol/L (136-145)
[2023-02-19 07:58] LABS: Magnesium 1.7 mg/dL (1.6-2.6)
[2023-02-19] MEDS: Tamsulosin HCl 0.4 MG CAP PO SCH (09:01)
[2023-02-19] MEDS: Senokot S 8.6-50 MG TAB PO SCH ×2 (09:01→21:27)
[2023-02-19] MEDS: levETIRAcetam 500 MG TAB PO SCH ×2 (09:03→21:27)
[2023-02-19] MEDS: Losartan 25 MG TAB PO SCH (09:03)
[2023-02-19] MEDS: Potassium Chloride 20 MEQ in Premix Bag 1 BAG IVPB SCH ×2 (09:03→12:58)
[2023-02-19] MEDS: metFORMIN 500 MG TAB PO SCH (09:03)
[2023-02-19] MEDS: Polyethylene Glycol 3350 17 GM Packet PO SCH (09:04)
[2023-02-19 16:09] VITALS: BMI 23.3
[2023-02-19] MEDS: DULoxetine 20 MG CAP PO SCH (21:26)
[2023-02-19] MEDS: Atorvastatin Calcium 40 MG TAB PO SCH (21:26)
[2023-02-20] MEDS: Cephalexin 250 MG CAP PO SCH ×3 (01:10→11:44)
[2023-02-20 08:32] LABS: Anion Gap 11 mmol/L (10-20); BUN (Urea Nitrogen) 10 mg/dL (8.4-25.7); Calc. Creatinine Clearance 75 mL/min (70-130); Carbon Dioxide 20 mmol/L (23-31); Chloride 113 mmol/L (98-107); Estimated GFR 99; Glucose 115 mg/dL (80-115); Potassium 3.9 mmol/L (3.5-5.1); Sodium 140 mmol/L (136-145)
[2023-02-20] MEDS: Tamsulosin HCl 0.4 MG CAP PO SCH (08:50)
[2023-02-20] MEDS: Senokot S 8.6-50 MG TAB PO SCH (08:50)
[2023-02-20] MEDS: levETIRAcetam 500 MG TAB PO SCH (08:50)
[2023-02-20] MEDS: Losartan 25 MG TAB PO SCH (08:50)
[2023-02-20] MEDS: Polyethylene Glycol 3350 17 GM Packet PO SCH (08:51)
[2023-02-20] MEDS: metFORMIN 500 MG TAB PO SCH (08:51)
[2023-02-20 12:14] VITALS: TEMP 98.3
[2023-02-20 16:00] VITALS: BP 93/67
== END 2023-02-20 16:38 | disposition home health service (06) | DRG 101 ==
LOC: ERS 21:23 → T4-B 23:38 → OBSVTOIN 02-16 01:37 → IMCU/EMU 02-16 11:54 → NEURO 02-17 19:59
PROVIDERS: ADMIT Student in an Organized Health Care Education/Training Program; ATTEND Student in an Organized Health Care Education/Training Program
DX: G40.409 Other generalized epilepsy and epileptic syndromes, not intractable, without status epilepticus (principal); E11.52 Type 2 diabetes mellitus with diabetic peripheral angiopathy with gangrene; E87.20 Acidosis, unspecified; N30.00 Acute cystitis without hematuria; I50.22 Chronic systolic (congestive) heart failure; G93.89 Other specified disorders of brain; I25.10 Atherosclerotic heart disease of native coronary artery without angina pectoris; E78.5 Hyperlipidemia, unspecified; N40.0 Benign prostatic hyperplasia without lower urinary tract symptoms; R00.1 Bradycardia, unspecified; H54.7 Unspecified visual loss; F32.A Depression, unspecified; F17.210 Nicotine dependence, cigarettes, uncomplicated; F10.90 Alcohol use, unspecified, uncomplicated; I44.7 Left bundle-branch block, unspecified; I11.0 Hypertensive heart disease with heart failure; R29.6 Repeated falls; E87.6 Hypokalemia; E86.0 Dehydration; K59.00 Constipation, unspecified; D64.9 Anemia, unspecified; E11.42 Type 2 diabetes mellitus with diabetic polyneuropathy; F03.90 Unspecified dementia, unspecified severity, without behavioral disturbance, psychotic disturbance, mood disturbance, and anxiety; R53.81 Other malaise; Z95.818 Presence of other cardiac implants and grafts; Z89.512 Acquired absence of left leg below knee; Z86.73 Personal history of transient ischemic attack (TIA), and cerebral infarction without residual deficits; Z88.5 Allergy status to narcotic agent; Z79.2 Long term (current) use of antibiotics; Z79.02 Long term (current) use of antithrombotics/antiplatelets; Z79.84 Long term (current) use of oral hypoglycemic drugs; Z79.899 Other long term (current) drug therapy; Z82.49 Family history of ischemic heart disease and other diseases of the circulatory system; Z80.9 Family history of malignant neoplasm, unspecified; Z90.49 Acquired absence of other specified parts of digestive tract; I25.2 Old myocardial infarction; Z95.5 Presence of coronary angioplasty implant and graft; Z88.8 Allergy status to other drugs, medicaments and biological substances
CPT/HCPCS: 36415; 36416; 36600; 51701; 70450; 71045; 74177; 80048; 80053; 80306; 80307; 81001; 82140; 82550; 82805; 83605; 83690; 83735; 84146; 84443; 84484; 85025; 87040; 87077; 87086; 87186; 93005; 93010; 95712; 95819; 95957; 96361; 96365; G0378; J0696; J1815; J1953; J3480; J3490; J7120; Q9967